=== PATIENT | female | born 1975 | race Two or more races ===

== ENCOUNTER 2024-06-17 19:15 | Emergency (ER) | payer BC ==
[~2024-06-17] VITALS: Ht 152.4 cm; Wt 100.0 kg
[2024-06-17 19:28] VITALS: BP 154/82; PULSE 95; TEMP 98; O2SAT 99
[2024-06-17 20:45] VITALS: RESP 17
[2024-06-17] MEDS: LIDOCAINE HCL/PF 1% 10 MG/ML 5ML VIAL INFIL ONE (20:53)
[2024-06-17] MEDS: BACITRACIN ZINC OINT UDPKT TOP ONE (20:54)
[2024-06-17] MEDS: IBUPROFEN 600MG TABLET PO ONE (21:45)
== END 2024-06-17 22:40 | disposition home or self-care (01) ==
LOC: ER 19:15
DX: S61.012A Laceration without foreign body of left thumb without damage to nail, initial encounter (principal); Z98.890 Other specified postprocedural states; X58.XXXA Exposure to other specified factors, initial encounter; Y93.89 Activity, other specified; Y92.89 Other specified places as the place of occurrence of the external cause; Y99.8 Other external cause status
CPT/HCPCS: 12002; 99283; J3490; Z7610 ×2; 99282